=== PATIENT | male | born 1985 | race Caucasian/White ===

== ENCOUNTER 2020-12-17 13:44 | Emergency (ER) | payer OTHER ==
[2020-12-17] MEDS ORDERED: CYCLOBENZAPRINE10 MG PO (16:33)
[2020-12-17] MEDS ORDERED: MEDROL 4MG DOSEP4 MG PO (16:33)
== END 2020-12-17 16:51 | disposition home or self-care (01) ==
LOC: FER 13:44
DX: S39.012A Strain of muscle, fascia and tendon of lower back, initial encounter (principal); M71.21 Synovial cyst of popliteal space [Baker], right knee; X58.XXXA Exposure to other specified factors, initial encounter
CPT/HCPCS: 72131; 93971; J1100